=== PATIENT | female | born 1960 | race Caucasian/White ===

== ENCOUNTER 2019-11-10 08:02 | Outpatient (CLI) | payer OTHER, SELFPAY ==
--- NOTE | ~2019-11-10 | MM_ITS ---
EXAMINATION: MM screening anupama BI w alysha HISTORY: Screening mammogram TECHNIQUE: Craniocaudal and mediolateral oblique 3-D tomosynthesis images were obtained and synthetic 2-D images were generated. CAD analysis was submitted and interpreted. COMPARISON: Comparison to multiple prior studies sequentially, with oldest reviewed study dated 12/2015. BREAST PARENCHYMAL COMPOSITION: There are scattered areas of fibroglandular density. FINDINGS: There is no evidence of suspicious mass, calcification, or architectural distortion to sugg est malignancy in either breast. There has been no suspicious interval change. IMPRESSION: 1. No mammographic evidence of malignancy. 2. Recommend routine screening mammography in one year. BI-RADS Category 1: Negative Reviewed, dictated and finalized at location A.
== END 2019-11-10 08:03 | disposition home or self-care (01) ==
LOC: ANHIMG 08:03
PROVIDERS: PCP Internal Medicine; Visit Provider Obstetrics & Gynecology
DX: Z12.31 Encounter for screening mammogram for malignant neoplasm of breast (principal)
CPT/HCPCS: 77063; 77067

== ENCOUNTER 2020-01-14 15:18 | Outpatient (CLI) | payer OTHER, SELFPAY ==
[2020-01-14 15:34] LABS: Basophils Absolute Auto 0.1 K/mm3 (0.0-0.1); Basophils Percent Auto 0.5 % (0.2-1.2); Eosinophils Absolute Auto 0.2 K/mm3 (0-0.3); Hematocrit 39.5 % (37.0-47.0); Hemoglobin 13.3 g/dL (12.0-15.0); Immature Granulocyte Absolute 0.04 K/mm3 (0.00-0.031); Immature Granulocyte Percent A 0.4 % (0-0.5); Lymphocytes Percent Auto 31.9 % (18.3-44.2); Mean Corpuscular HGB Conc 33.7 g/dl (32-36); Mean Corpuscular Hemoglobin 32.4 pg (26-34); Mean Corpuscular Volume 96.1 fl (80-100); Mean Platelet Volume 8.7 fl (7.4-10.4); Monocytes Absolute Auto 0.9 K/mm3 (0.1-0.6); Monocytes Percent Auto 9.1 % (2.6-8.5); Neutrophils Absolute Auto 5.3 K/mm3 (1.3-6.7); Neutrophils Percent Auto 56.1 % (45.5-73.1); Platelet Count Result 377 k/mm3 (150-375); Red Blood Count 4.11 M/mm3 (4.2-5.4); Red Cell Distribution Width 12.2 % (11.5-14.5); White Blood Count 9.4 K/mm3 (4.5-10.0)
== END 2020-01-14 15:19 | disposition home or self-care (01) ==
LOC: ANHLAB 15:20
PROVIDERS: PCP Internal Medicine; Visit Provider Internal Medicine Hematology & Oncology
DX: D47.3 Essential (hemorrhagic) thrombocythemia (principal)
CPT/HCPCS: 36415; 85025

== ENCOUNTER 2020-07-14 15:04 | Outpatient (CLI) | payer OTHER, SELFPAY ==
[2020-07-14 15:26] LABS: Basophils Absolute Auto 0.1 K/mm3 (0.0-0.1); Basophils Percent Auto 0.8 % (0.2-1.2); Eosinophils Absolute Auto 0.2 K/mm3 (0-0.3); Eosinophils Percent Auto 2.4 % (0-4.4); Hematocrit 37.5 % (37.0-47.0); Hemoglobin 12.7 g/dL (12.0-15.0); Immature Granulocyte Absolute 0.04 K/mm3 (0.00-0.031); Immature Granulocyte Percent A 0.5 % (0-0.5); Lymphocytes Absolute Auto 3.42 K/mm3 (0.9-3.2); Lymphocytes Percent Auto 38.6 % (18.3-44.2); Mean Corpuscular HGB Conc 33.9 g/dl (32-36); Mean Corpuscular Hemoglobin 32.1 pg (26-34); Mean Corpuscular Volume 94.7 fl (80-100); Mean Platelet Volume 8.7 fl (7.4-10.4); Monocytes Absolute Auto 0.6 K/mm3 (0.1-0.6); Monocytes Percent Auto 7.2 % (2.6-8.5); Neutrophils Absolute Auto 4.5 K/mm3 (1.3-6.7); Neutrophils Percent Auto 50.5 % (45.5-73.1); Platelet Count Result 367 k/mm3 (150-375); Red Blood Count 3.96 M/mm3 (4.2-5.4); Red Cell Distribution Width 12.1 % (11.5-14.5); White Blood Count 8.9 K/mm3 (4.5-10.0)
== END 2020-07-14 15:05 | disposition home or self-care (01) ==
LOC: ANHLAB 15:05
PROVIDERS: PCP Internal Medicine; Visit Provider Internal Medicine Hematology & Oncology
DX: D47.3 Essential (hemorrhagic) thrombocythemia (principal)
CPT/HCPCS: 36415; 85025

== ENCOUNTER 2020-11-22 08:17 | Outpatient (CLI) | payer OTHER, SELFPAY ==
--- NOTE | ~2020-11-22 | MM_ITS ---
EXAMINATION: MM screening anupama BI w alysha HISTORY: Screening mammogram TECHNIQUE: Craniocaudal and mediolateral oblique 3-D tomosynthesis images were obtained and synthetic 2-D images were generated. CAD analysis was submitted and interpreted. COMPARISON: 11/10/2019, 09/12/2018, 09/27/2017 bilateral digital screening mammogram examinations BREAST PARENCHYMAL COMPOSITION: There are scattered areas of fibroglandular density. FINDINGS: There is no evidence of suspicious mass, calcification, or architectural distortion to sugg est malignancy in either breast. There has been no suspicious interval change. IMPRESSION: 1. No mammographic evidence of malignancy. 2. Recommend routine screening mammography in one year. BI-RADS Category 1: Negative Reviewed, dictated and finalized at location A.
== END 2020-11-22 08:18 | disposition home or self-care (01) ==
PROVIDERS: PCP Internal Medicine; Visit Provider Obstetrics & Gynecology
DX: Z12.31 Encounter for screening mammogram for malignant neoplasm of breast (principal)
CPT/HCPCS: 77063; 77067

== ENCOUNTER 2021-03-05 15:07 | Outpatient (RCR) | payer OTHER, SELFPAY ==
[2021-03-05 15:19] VITALS: BMI 29.7
== END 2021-06-01 14:48 | disposition home or self-care (01) ==
LOC: ANHDMC 15:07
PROVIDERS: PCP Internal Medicine; Visit Provider Internal Medicine
DX: E66.9 Obesity, unspecified (principal); Z68.32 Body mass index [BMI] 32.0-32.9, adult; Z71.3 Dietary counseling and surveillance
CPT/HCPCS: 97802

== ENCOUNTER 2021-12-05 07:22 | Outpatient (CLI) | payer OTHER, SELFPAY ==
--- NOTE | ~2021-12-05 | MM_ITS ---
EXAMINATION: MM screening anupama BI w alysha HISTORY: Screening mammogram TECHNIQUE: Craniocaudal and mediolateral oblique 3-D tomosynthesis images were obtained and synthetic 2-D images were generated. CAD analysis was submitted and interpreted. COMPARISON: 11/22/2020, 11/10/2019, 09/16/2018 bilateral screening mammogram examinations BREAST PARENCHYMAL COMPOSITION: There are scattered areas of fibroglandular density. FINDINGS: There is no evidence of suspicious mass, calcification, or architectural distortion to sugg est malignancy in either breast. There has been no suspicious interval change. IMPRESSION: 1. No mammographic evidence of malignancy. 2. Recommend routine screening mammography in one year. BI-RADS Category 1: Negative Reviewed, dictated and finalized at location A.
== END 2021-12-05 07:23 | disposition home or self-care (01) ==
LOC: ANHIMG 07:24
PROVIDERS: PCP Internal Medicine; Visit Provider Obstetrics & Gynecology
DX: Z12.31 Encounter for screening mammogram for malignant neoplasm of breast (principal)
CPT/HCPCS: 77063; 77067

== ENCOUNTER 2023-01-29 08:00 | Outpatient (CLI) | payer OTHER, SELFPAY ==
--- NOTE | ~2023-01-29 | MM_ITS ---
EXAMINATION: MM screening anupama BI w alysha HISTORY: Screening mammogram TECHNIQUE: Craniocaudal and mediolateral oblique 3-D tomosynthesis images were obtained and synthetic 2-D images were generated. CAD analysis was submitted and interpreted. COMPARISON: 12/05/2021, 11/22/2020, 11/10/2019 bilateral screening mammogram examinations BREAST PARENCHYMAL COMPOSITION: There are scattered areas of fibroglandular density. FINDINGS: There is no evidence of suspicious mass, calcification, or architectural distortion to sugg est malignancy in either breast. There has been no suspicious interval change. IMPRESSION: 1. No mammographic evidence of malignancy. 2. Recommend routine screening mammography in one year. BI-RADS Category 1: Negative Reviewed, dictated and finalized at location A.
== END 2023-01-29 08:01 | disposition home or self-care (01) ==
PROVIDERS: PCP Internal Medicine; Visit Provider Obstetrics & Gynecology
DX: Z12.31 Encounter for screening mammogram for malignant neoplasm of breast (principal)
CPT/HCPCS: 77063; 77067

== ENCOUNTER 2024-03-16 07:21 | Outpatient (CLI) | payer OTHER, SELFPAY ==
--- NOTE | ~2024-03-16 | MM_ITS ---
EXAMINATION: MM screening anupama BI w alysha HISTORY: Screening TECHNIQUE: Craniocaudal and mediolateral oblique 3-D tomosynthesis images were obtained and synthetic 2-D images were generated. CAD analysis was submitted and interpreted. COMPARISON: Comparison to multiple prior studies sequentially, with oldest reviewed study dated 09/2017. BREAST PARENCHYMAL COMPOSITION: Dense: The breasts are heterogeneously dense, which may obscure small masses FINDINGS: There is no evidence of suspicious mass, calcification, or architectural distortion to sugg est malignancy in either breast. There has been no suspicious interval change. IMPRESSION: 1. No mammographic evidence of malignancy. 2. Recommend routine screening mammography in one year. BI-RADS Category 1: Negative Reviewed, dictated and finalized at location B.
== END 2024-03-16 07:22 | disposition home or self-care (01) ==
LOC: ANHIMG 07:24
PROVIDERS: PCP Internal Medicine; Visit Provider Obstetrics & Gynecology
DX: Z12.31 Encounter for screening mammogram for malignant neoplasm of breast (principal)
CPT/HCPCS: 77063; 77067

== ENCOUNTER 2025-05-13 08:43 | Outpatient (CLI) | payer OTHER, SELFPAY ==
--- NOTE | ~2025-05-13 | DEXA_ITS ---
Bone Density Report Name: YAMILETH LENNON Age: 64 Sex: Female Ethnicity: White Date of : 1960 Indication: postmenopausal; screening for osteoporosis; height loss; Referring Provider: MARTINFADUMO Study: Bone densitometry was performed. Exam Date: May 13, 2025 Accession number: [id number] Bone Density: Region BMD T-score Z-score Classification AP Spine(L1-L4) 0.905 -1.3 0.6 Osteopenia Femoral Neck (Left) 0.610 -2.2 -0.6 Osteopenia Total Hip (Left) 0.825 -1.0 0.3 Normal Femoral Neck (Right) 0.669 -1.6 0.0 Osteopenia Total Hip (Right) 0.797 -1.2 0.1 Osteopenia Total Hip Mean 0.811 -1.1 0.2 Osteopenia World Health Organization criteria for BMD impression classify patients as: Normal (T-score at or above -1.0), Osteopenia (T-score between -1.0 and -2.5), or Osteoporosis (T-score at or below -2.5). 10-year Fracture Risk(1): Major Osteoporotic Fracture 12% Hip Fracture 2.0% Reported Risk Factors: [place] (), Neck BMD=0.610, BMI=28.0 (1) FRAX(R) Version 3.08. Fracture probability calculated for an untreated patient. Fracture probability may be lower if the patient has received treatment. Clinical Information Provided by Patient: Patient maximum height was 67.0 Menopause Age: 40 No regular weight bearing exercise Drinks caffeinated beverages Onset of menses at age 8 Number of children 1 Impression: The patient has low bone mass, based on the Left Femoral Neck T-score. The patient has an estimated ten-year risk of hip fracture of 2% and an estimated ten-year risk of major fracture of 12%, based on the WHO FRAX algorithm. Discussion: BONE DENSITY IS LOW AT ONE OR MORE SKELETAL SITES. This patient's lowest T-score is low at one or more skeletal sites. It meets the World Health Organization's (WHO) criteria for ?low bone mass? (T-score between -1.0 and -2.5). The patient's 10-year risk of fracture as calculated by FRAX is less than the threshold where pharmacological therapy is recommended by the National Osteoporosis Foundation (NOF). However, all treatment decisions require clinical judgment and consideration of individual patient factors, including patient preferences, comorbidities, previous drug use, risk factors not captured in the FRAX model (e.g., frailty, falls, vitamin D deficiency, increased bone turnover, interval significant decline in bone density) and possible under or overestimation of fracture risk by FRAX. The patient should follow a healthful lifestyle (good nutrition with adequate calcium and vitamin D, and appropriate weight-bearing exercise). Follow-Up: Consider repeating this study in 2 to 3 years to reassess this patient's status, or sooner if there is some new clinical indication. Reported by: DANA on 05/13/2025 9:31:00 AM. Reviewed, dictated and finalized at location A.
--- NOTE | ~2025-05-13 | MM_ITS ---
EXAMINATION: MM screening anupama BI w alysha HISTORY: Screening TECHNIQUE: Craniocaudal and mediolateral oblique 3-D tomosynthesis images were obtained and synthetic 2-D images were generated. CAD analysis was submitted and interpreted. COMPARISON: Comparison to multiple prior studies sequentially, with oldest reviewed study dated , 11/10/2019 BREAST PARENCHYMAL COMPOSITION: The breasts are heterogeneously dense, which may obscure small masses. FINDINGS: There is no evidence of suspicious mass, calcification, or architectural distortion to suggest malignancy in either breast. IMPRESSION: 1. No mammographic evidence of malignancy. 2. Recommend routine screening mammography in one year. BI-RADS Category 1: Negative Reviewed, dictated and finalized at location B. ING MACHINE OPERATOR
--- OUTSIDE RECORDS SUMMARY | 2025-05-13 08:59 | XMS_ITS | Encounter Summary ---
Author Organization [facility] Address 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
--- OUTSIDE RECORDS SUMMARY | 2025-05-13 08:59 | XMS_ITS | Clinical Summary ---
Author Organization [facility] Address [address] [place] [address] [place] [address] Care Team Providers Care Umbrella Tipper Machine Name Role Phone Wes Landeros MD Primary Care Provider Allergies No known active allergies Medications lisinopril-hydr oCHLOROthiazide (ZESTORETIC) 10-12.5 mg tablet lisinopril 10 mg-hydrochloroth iazide 12.5 mg tablet once daily Active rosuvastatin (CRESTOR) 20 mg tablet rosuvastatin 20 mg tablet Active sertraline (ZOLOFT) 50 mg tablet sertraline 50 mg tablet once daily Active ALPRAZolam (XANAX) 0.5 mg tablet alprazolam 0.5 mg tablet Active Active Problems Problem Noted Date Diagnosed Date Reactive thrombocytosis 10/02/2019 Family History Medical History Relation Name Comments Diabetes Father Relation Name Status Comments Brother Alive Father Mother Sister 1 Alive Sister 2 Alive Sister 3 SISTER 44 YEARS AGO FROM [place] Son SON 25 YEA RS AGO Social History Tobacco Use Types Packs/Day Years Used Date Smoking Tobacco: Former Cigarettes 0.3 20 0 10/01/1994 - 10/01/2014 Smokeless Tobacco: Never Tobacco Cessation:Counseling Given: No Alcohol Use Standard Drinks/Week Comments Yes 2 (1 standard drink = 0.6 oz pur e alcohol) 2 BEERS ON THE WEEKENDS Comments No Sex and Gender Information Value Date Recorded Sex Assigned at Not on file 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 Gender Identity Not on file Sexual Orientation Not on file Last Filed Vital Signs Vital Sign Reading Time Taken Comments Blood Pressure 134/74 07/14/2020 3:51 PM PILOT PLANT TECHNICIAN Pulse 85 07/14/2020 3:51 PM PILOT PLANT TECHNICIAN Temperature 36.4 C (97.5 F) 07/14/2020 3:51 PM PILOT PLANT TECHNICIAN Respiratory Rate - - Oxygen Saturation 96% 07/14/2020 3:51 PM PILOT PLANT TECHNICIAN Inhaled Oxygen Concentration - - Weight 84.6 kg (186 lb 9.6 oz) 07/14/2020 3:51 P M PILOT PLANT TECHNICIAN Height 170.2 cm (5' 7) 07/14/2020 3:51 PM PILOT PLANT TECHNICIAN Body Mass Index 29.23 07/14/2020 3:51 PM PILOT PLANT TECHNICIAN Plan of Treatment Health Maintenance Due Date Last Done Comments DTAP/TDAP/TD VACCINES (1 - Tdap) 1977 BREAST CANCER SCREENING 1998 COLORECTAL SCREENING 11/06/2003 Colorectal Cancer Screening 11/06/2003 FIT-DNA Q 3 years 11/06/2003 FIT/FOBT Q 1 year 11/06/2003 Flex Sig/CT Colonography Q 5 years 11/06/2003 PNEUMOCOCCAL VACCINE 50+ YEARS (1 of 1 - PCV) 11/06/19 09 ZOSTER VACCINE (1 of 2) 2008 OSTEOPOROSIS SCREENING 11/06/2023 INFLUENZA VACCINE (#1) 2025 RSV VACCINE (60+ or ) (1 - 1-dose 75+ series) 2033 Care Teams Umbrella Tipper Machine Relationship Specialty Start Date End Date Wes Landeros MD PCP - General Internal Medicine 08/24/19
--- OUTSIDE RECORDS SUMMARY | 2025-05-13 08:59 | XMS_ITS | Encounter Summary ---
Author Organization [facility] Address 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
--- OUTSIDE RECORDS SUMMARY | 2025-05-13 09:00 | XMS_ITS | Data Portability ---
Author Organization [place] [facility] [employer], Main Office Address [address] [place] [address] Assessment Encounter Date Assessment Date Assessment LastModified by Organization Details LastModified Time 10/02/2024 10/02/2024 07/26/2022: Gluc 109 A1C 5.6 Vit D 24 PLT 410 02/01/2023: TSH/FT4/Lipids : WNL Na 133 A1C 5.4 PLT 442 VIT D 71 08/22/2023: Labs: Stable 03/03/2024: PLT 438 A1C 5.8 09/28/2024: A1C 5.9 PLT 403 45 minutes spent with the patient, labs reviewed, discussed in detail her use of xanax and also to start on phentermine Not available 10/02/2024 16:03:00 11/01/2024 11/01/2024 07/26/2022: Gluc 109 A1C 5.6 Vit D 24 PLT 410 02/01/2023: TSH/FT4/Lipids : WNL Na 133 A1C 5.4 PLT 442 VIT D 71 08/22/2023: Labs: Stable 03/03/2024: PLT 438 A1C 5.8 09/28/2024: A1C 5.9 PLT 403 Not available 11/01/2024 15:45:28 12/06/2024 12/06/2024 07/26/2022: Gluc 109 A1C 5.6 Vit D 24 PLT 410 02/01/2023: TSH/FT4/Lipids : WNL Na 133 A1C 5.4 PLT 442 VIT D 71 08/22/2023: Labs: Stable 03/03/2024: PLT 438 A1C 5.8 09/28/2024: A1C 5.9 PLT 403 Not available 12/06/2024 13:36:12 04/04/2025 04/04/2025 07/26/2022: Gluc 109 A1C 5.6 Vit D 24 PLT 410 02/01/2023: TSH/FT4/Lipids : WNL Na 133 A1C 5.4 PLT 442 VIT D 71 08/22/2023: Labs: Stable 03/03/2024: PLT 438 A1C 5.8 09/28/2024: A1C 5.9 PLT 403 03/01/2025: A1C 5.8 07/26/2022: Gluc 109 A1C 5.6 Vit D 24 PLT 410 02/01/2023: TSH/FT4/Lipids : WNL Na 133 A1C 5.4 PLT 442 VIT D 71 08/22/2023: Labs: Stable 03/03/2024: PLT 438 A1C 5.8 09/28/2024: A1C 5.9 PLT 403 45 minutes spent with the patient, labs reviewed, discussed in detail her use of xanax and also to start on phentermine [email or web address] Not available 04/04/2025 15:52:10 Plan of Treatment Reminders Order Date Submit Date Provider Last Modified By Organization Details Last Modified Time Details Appointments Any 15 2025 03:00P M Wes covarrubias MD Not available Not available Not available Lab HbA1c (hemoglob in A1c), blood 2024 025 [facility], [address], [place], [address], 04/04/2025 16:03:14 microalbu min/creat inine, mass ratio, urine 2024 025 [facility], [address], [place], [address], 04/04/2025 16:03:13 vitamin D, 25-hydrox y, total, serum 2024 025 [facility], [address], [place], [address], 04/04/2025 16:03:15 CMP, serum or plasma 2024 025 EMILY [facility], [address], [place], [address], 04/04/2025 16:03:12 CBC w/ auto diff 2024 025 EMILY [facility], [address], [place], [address], 04/04/2025 16:03:14 TSH + free T4, serum 2024 025 EMILY [facility], [address], [place], [address], 04/04/2025 16:03:12 lipid panel, serum 2024 025 EMILY [facility], [address], [place], [address], 04/04/2025 16:03:11 CMP, serum or plasma 2024 025 [facility], [address], [place], [address], 04/02/2025 09:24:58 CBC w/ auto diff 2024 025 [facility], [address], [place], [address], 04/02/2025 09:24:58 TSH + free T4, serum 2024 025 [facility], [address], [place], [address], 04/02/2025 09:24:58 lipid panel, serum 2024 025 [email or web address] [facility], [address], [place], [address], 04/02/2025 09:24:58 HbA1c (hemoglob in A1c), blood 2024 025 [facility], [address] , [place], [address], 04/02/2025 09:24:57 microalbu min/creat inine, mass ratio, urine 2024 025 [email or web address] [employer] [facility], [address] , [place], [address], 04/02/2025 09:24:58 vitamin D, 25-hydrox y, total, serum 2024 025 [employer], [address], [place], [address], 04/02/2025 09:24:58 Referral podiatris t referral - Please call patient to schedule an appointme nt. Thank you. 2024 025 EMILY Lindquist DPM, [address], [facility] [address], [place], [address], 04/08/2025 08:52:25 podiatris t referral - Please call patient to schedule an appointme nt. Thank you. 2024 025 Juni Lindquist DPM, [address], [facility] [address], [place], [address], 01/01/2025 11:32:11 Procedures None recorded. Surgeries None recorded. Imaging MAMMO, screening , digital, bilateral - Please call patient to schedule. 2024 025 [email or web address] [facility], [address], [place], [address], 04/04/2025 15:39:13 bone density - Please call patient to schedule. 2024 025 [email or web address] [facility], [address], [place], [address], 11/08/2024 16:10:16 Medication Orders alprazola m 1 mg tablet 2024 025 [id number], [address], [place], [place], [id number], 04/04/2025 16:02:12 phentermi ne 37.5 mg tablet 2024 025 [facility], [address], [place], [place], [id number], 04/04/2025 15:21:43 phentermi ne 37.5 mg tablet 2024 025 [facility], [address], [place], [place], [id number], 04/04/2025 15:21:43 phentermi ne 37.5 mg tablet 2024 025 [facility] #80[facility], [address], [place], [place], [id number], 04/04/2025 15:21:43 phentermi ne 37.5 mg tablet 2024 025 [facility] #32147, [address], [place], [place], [id number], 04/04/2025 15:21:43 alprazola m 1 mg tablet 2024 025 [facility], [address], [place], [place], [id number], 10/02/2024 16:00:52 Patient TargetsNo targets recorded. Patient InstructionsNo instructions recorded. Reason for Referral Associate Store Director Referral for Hype rglycemia Please call patient to schedule an appointment. Thank you. Referring Physician: Wes Landeros, Internal Medicine, Encounter Date: 10/02/2024 Associate Store Director Referral for Hype rglycemia Please call patient to schedule an appointment. Thank you. Referring Physician: Murtuza Bahrainwala, Internal Medicine, Encounter Date: 04/04/2025 Problems Name Problem SNOMED Code Status Onset Date Resolution Date Notes Provider Name and Address Organization Details Recorded Time Depressive disorder 79622549 Active Not Available [facility] 3 05:20:11 Essential hypertension 26034598 Active Wes danielle MD [address], [address], [place], [address] , [facility] [employer] [facility] [employer] 5 15:52:18 Acute sinusitis 93537546 Active 2021 Not Available [facility] 3 05:20:11 Cough 08049251 Active 2021 Not Available [facility] 3 05:20:11 Upper respiratory infection 96060646 Active 2022 Elizabeth conteh, [place] [employer] [facility] [employer] [facility] 3 13:00:04 Eruption 631656623 Active 2022 Elizabeth conteh, [employer] [facility] [employer] 3 11:32:25 Moderate recurrent major depression 94177649 Active 2022 Wes danielle MD [address], [address], [place], [address] , [employer] [facility] [employer] [facility] 5 15:52:18 Thrombocytosi s 9582197 Active 2022 Wes danielle MD [address], [address], [place], [address] , [employer] [facility] [employer] [facility] 5 15:52:18 Hyperlipidemi a 84983490 Active 2022 Wes danielle MD [address], [place], [address] , [employer] [facility] [employer] [facility] 5 15:52:18 Hyperglycemia 99736392 Active 2022 Wes danielle MD [address], [place], [address] , [place] [facility] [employer] [facility] 5 15:52:18 Vitamin D deficiency 22558622 Active 2022 Wes danielle MD [address] [facility], [address], [address] [place] [address] , [facility] [email or web address] [facility] 5 15:52:18 Environmental allergy 125033083 Active 2022 Wes danielle MD [address] [facility], [address], [address] [place] [address] , [facility] [email or web address] [facility] 5 15:52:18 COVID-19 311216612 Active 2023 Wes danielle MD [address] [facility], [address], [address] [place] [address] , [facility] [email or web address] [facility] 5 15:52:18 Contact dermatitis caused by urushiol from [facility] radha 835146437 Active 2023 JODY Peoples, [facility] [email or web address] [facility] 5 14:09:56 Acute urticaria 763901302 Active 2023 Judith Cano MA null, [facility] [email or web address] [facility] 4 11:55:38 Obesity 387614402 Active 2024 Wes danielle MD [address] [facility], [address], [address] [place] [address] , [facility] [email or web address] [facility] 5 14:18:26 Infection of ear 778318472 Active 2024 JODY Peoples, [facility] [email or web address] [facility] 5 12:18:55 Problem Notes None recorded. Procedures Surgical History Date Name Laterality Status Provider Name and Address Organization Details Recorded Time Appendectomy completed Not Available [employer] 09/08/2022 05:14:12 Imaging Results None recorded. Procedure Notes None recorded. Medical Equipment None Reported. Allergies No known drug allergies Medications Name Sig Start Date Stop Date Status Note LastModified by Organization Details LastModified Time Prescript ion - Renewal active Not Available Not Available Not Available azithromy latrice 250 mg tablet TAKE 2 TABLETS (500 MG) BY ORAL ROUTE ONCE DAILY FOR 1 DAY THEN 1 TABLET (250 MG) BY ORAL ROUTE ONCE DAILY FOR 4 DAYS 02/22 completed Not Available Not Available Not Available alprazola m 1 mg tablet TAKE 1 TABLET BY MOUTH TWICE DAILY NEEDED active Not Available Not Available No t Available fluconazo le 150 mg tablet TK 1 T PO PRF ITCH UTD 04/30 completed Not Available Not Available Not Available phentermi ne 15 mg capsule TK 1 C PO QD 04/30 completed Not Available Not Available Not Available Zyrtec 10 mg tablet Take 1 tablet every day by oral route PRN 2018 active Not Available Not Available Not Avai lable phentermi ne 37.5 mg tablet TAKE 1 TABLET BY MOUTH DAILY 04/04 completed Not Available Not Available Not Available amlodipin e 5 mg tablet TAKE 1 TABLET DAILY 2023 active Not Available Not Available Not Avai lable acyclovir 400 mg tablet TAKE 1 TABLET BY MOUTH TWICE DAILY active Not Available Not Available No t Available triamcino lone acetonide 0.1 % topical cream APPLY A THIN LAYER TO THE AFFECTED AREA(S) BY TOPICAL ROUTE 2 TIMES PER DAY active Not Available Not Available No t Available phentermi ne 30 mg capsule TK 1 C PO QD 04/30 completed Not Available Not Available Not Available alprazola m 0.5 mg tablet TAKE 1 TABLET BY MOUTH TWICE DAILY NEEDED 04/03 completed Not Available Not Available Not Available benzonata te 100 mg capsule TK ONE C PO BID PRF COUGH 06/16 completed Not Available Not Available Not Available monteluka st 10 mg tablet Take 1 tablet every day by oral route. active Not Available Not Available No t Available lisinopri l 10 mg-hydroc hlorothia zide 12.5 mg tablet TAKE 1 TABLET DAILY 2024 active Not Available Not Available Not Avai lable prednison e 5 mg tablets in a dose pack FOLLOW PACKAGE DIRECTIO NS 04/03 completed Not Available Not Available Not Available methylpre dnisolone 4 mg tablets in a dose pack FOLLOW PACKAGE DIRECTIO NS 04/04 completed Not Available Not Available Not Available sertralin e 50 mg tablet TAKE 1 TABLET DAILY (NO ALCOHOL, DRIVING, OR WITH SEDATING MEDICATI ONS, NOTIFY IF ANY CHANGE IN MOOD OR BEHAVIOR ) active Not Available Not Available No t Available amoxicill in 875 mg-potass ium clavulana te 125 mg tablet Take 1 tablet twice a day by oral route for 7 days. 04/16 completed Not Available Not Available Not Available Premarin 0.625 mg/gram vaginal cream APPLY 0.5 GRAM VAGINALL Y TO THE AFFECTED AREA 2 TIMES A WEEK active Not Available Not Available No t Available rosuvasta tin 20 mg tablet TAKE 1 TABLET BY MOUTH ONCE DAILY 2024 active Not Available Not Available Not Avai lable aspirin [address] Trimble 07/14/19 21 Not Available Not Available Not Available Robitussi n Cough and Cold CF as needed 12/16 completed Not Available Not Available Not Available cholecalc iferol (vitamin D3) 1,250 mcg (50,000 unit) capsule Take 1 capsule every week by oral route for 60 days. 03/01 completed Not Available Not Available Not Available Suprep Bowel Prep Kit 17.5 gram-3.13 gram-1.6 gram oral solution 12/16 completed Not Available Not Available Not Available Flonase Allergy Relief 50 mcg/actua tion nasal spray,fatemeh pension [facility] 1 spray every day by intranas al route. active Not Available Not Available No t Available Flublok Quad (PF) 180 mcg (45 mcg x 4)/0.5 mL IM syringe PHARMACI ST ADMINIST ERED IMMUNIZA TION ADMINIST ERED AT TIME OF DISPENSI NG active Not Available Not Available No t Available Lagevrio 200 mg capsule (EUA) Take 4 capsules every 12 hours by oral route for 5 days. 04/03 completed never received from rojelio chandler Not Available Not Available Not Available Vitals Date Recorded Body height Body mass index (BMI) Body weight Heart rate Oxygen saturation Oxygen saturation in Arterial blood by Pulse oximetry Body temperature Systolic And Diastolic Provider Name and Address Organization Details Last Updated DateTime 5 167.64 cm 28.7 kg/m2 55884.4 4 g 83 /min 97 % 97 % 97.3 [degF] 120/68 mm[Hg] Carmen Marsh MA [facility] [employer] [facility] 5 15:27:54 Date Recorded Body height Body mass index (BMI) Body weight Heart rate Oxygen saturation Oxygen saturation in Arterial blood by Pulse oximetry Body temperature Systolic And Diastolic Provider Name and Address Organization Details Last Updated DateTime 5 167.64 cm 28.1 kg/m2 81274.0 7 g 105 /min 98 % 98 % 98.4 [degF] 137/86 mm[Hg] Joseph JODY Levi [facility] [employer] [facility] 5 15:13:09 Date Recorded Body height Body mass index (BMI) Body weight Body temperature Heart rate Oxygen saturation Oxygen saturation in Arterial blood by Pulse oximetry Pain severity - 0-10 verbal numeric rating [Score] - Reported Systolic And Diastolic Provider Name and Address Organization Details Last Updated DateTime 5 167.64 cm 27.9 kg/m2 50443.4 8 g 97.3 [degF] 80 /min 97 % 97 % 0 136/72 mm[Hg] Marla Finney MA [facility] [employer] [facility] 5 15:09:50 Date Recorded Body height Body mass index (BMI) Body weight Body temperature Heart rate Oxygen saturation Oxygen saturation in Arterial blood by Pulse oximetry Pain severity - 0-10 verbal numeric rating [Score] - Reported Systolic And Diastolic Provider Name and Address Organization Details Last Updated DateTime 5 167.64 cm 27.3 kg/m2 55324.1 1 g 97.3 [degF] 94 /min 95 % 95 % 0 130/68 mm[Hg] Marla Finney MA [facility] [employer] [facility] 5 15:11:34 Date Recorded Body height Body mass index (BMI) Body weight Body temperature Pain severity - 0-10 verbal numeric rating [Score] - Reported Heart rate Oxygen saturation Oxygen saturation in Arterial blood by Pulse oximetry Systolic And Diastolic Provider Name and Address Organization Details Last Updated DateTime 5 167.64 cm 27.8 kg/m2 35124.8 9 g 97 [degF] 0 92 /min 96 % 96 % 124/66 mm[Hg] SALEEM Garcia - [facility] 5 15:20:59 Social History Question Answer Notes LastModified by Organizat ion Details LastModified Time Tobacco Smoking Status Former Smoker quit 2007 Not Available [employer] 09/08/2022 05:11:44 Do You Have An Advance Directive? No [id number] Information not available 09/08/2022 What Is Your Level Of Caffeine Consumption? Occasional [id number] Information not available 09/08/2022 How Much Tobacco Do You Chew? None [id number] Information not available 09/08/2022 In The 14 Days Before Symptom Onset, Have You Had Close Contact With A Laboratory-confi rmed COVID-19 While That Case Was Ill? No [id number] Information not available 09/08/2022 In The 14 Days Before Symptom Onset, Have You Had Close Contact With A Person Who Is Under Investigation For COVID-19 While That Person Was Ill? No [id number] Information not available 09/08/2022 What Type Of Diet Are You Following? REGULAR [id number] Information not available 09/08/2022 Which Illicit Or Recreational Drugs Have You Used? None [id number] Information not available 09/08/2022 What Is The Highest Grade Or Level Of School You Have Completed Or The Highest Degree You Have Received? [id number] Information not available 03/01/2023 Have There Been Any Changes To Your Family Or Social Situation? No Information not available 12/06/2024 What Is The Fluoride Status Of Your Home? Unknown Information not available 03/01/2023 Are There Any Guns Present In Your Home? No Information not available 03/01/2023 Do You Use Insect Repellent Routinely? No Information not available 12/06/2024 Where Do You Live? SingleLevelHouse Information not available 03/01/2023 Do You Have A Medical Power Of Retrimmer? No Information not available 03/01/2023 What Was The Date Of Your Most Recent Tobacco Screening? 04/04/2025 Information not available 04/04/2025 Do You Have Any Pets? Yes Information not available 03/01/2023 What Is Your Relationship Status? Information not available 03/01/2023 Do You Use Your Seat Belt Or Car Seat Routinely? Yes Information not available 03/01/2023 Do You Have Smoke And Carbon Monoxide Detectors In Your Home? Yes Information not available 03/01/2023 At What Age Did You Start Smoking Tobacco? 8 [id number] Information not available 09/08/2022 Are You Passively Exposed To Smoke? No Information not available 03/01/2023 Are There Any Smokers In Your House? No Information not available 03/01/2023 How Much Tobacco Do You Smoke? No Was 1 Ppw Information not available 03/01/2023 Do You Use Sunscreen Routinely? Yes [id number] Information not available 09/08/2022 Have You Recently Traveled Abroad? No [id number] Information not available 09/08/2022 Sex: Female Functional Status Question Answer Note LastModified by Organizat ion Details LastModified Time Do you use any illicit or recreational drugs? No Information not available 03/01/2023 Do you or have you ever used any other forms of tobacco or nicotine? No Information not available 03/01/2023 What is your level of alcohol consumption? Occasional [id number] Information not available 09/08/2022 Are you currently employed? Yes Information not available 03/01/2023 What is your occupation? [employer] [id number] Information not available 09/08/2022 What is your exercise level? None [id number] Information not available 09/08/2022 Mental Status Question Answer Note LastModified by Organization D etails LastModified Time Do you feel stressed (tense, restless, nervous, or anxious, or unable to sleep at night)? [id number] Information not available 03/01/2023 Family History Relationship Description Onset Age of this Age Resolved Age Notes LastModified by Organization Details LastModified Time Sister Hypertensive disorder Not available 2022 16:14:18 Sister Leukemia Not availabl e 03/01/2023 16:15:20 Father Diabetes mellitus Not available 2022 16:14:36 Father Abdominal aortic aneurysm Not available 2022 16:14:46 Mother Myocardial infarction Not available 03/01 16:15:01 Medical History Condition Response BLINDNESS N NERVE DISEASE N RHEUMATIC FEVER N BLADDER PROBLEMS N KIDNEY STONES N MRSA N OTHER # 1 N POLIO N LUNG DISEASE/DISORDER N RADIATION / CHEMOTHERAPY N COPD N Other # 2 N BLOOD DISEASES N EAR OR HEARING PROBLEMS N MUMPS N BOWEL PROBLEMS N DEPRESSION (INCLUDING POST ) Y STROKE/TIA N ULCERS N BENIGN PROSTATIC HYPERPLASIA N MEASLES N MYOCARDIAL INFARCTION N OBESITY N GERD/NAUSEA N ANEURYSM N URINARY/BLADDER/KIDNEY PROBLEMS N CORONARY ARTERY DISEASE (CAD) N ADDICTION CONCERNS N Impotence N ENDOMETRIOSIS N USE OF BLOOD THINNERS N SKIN PROBLEMS N GASTROINTESTINAL DISORDER N PERIPHERAL VASCULAR DISEASE N MUSCLE,JOINT OR BONE PROBLEMS N GASTROINTESTINAL BLEEDING N BLOOD CLOTS N ASTHMA N CATARACTS N ERECTILE DYSFUNCTION N VARICOSITIES N GI PROBLEMS N Low Testosterone N INFERTILITY N AIDS/HIV N CHEMOTHERAPY / RADIATION N LIVER DISEASE N MALE HYPOGONADISM N HYPERTENSION Y Deficiency N TOURETTE'S N ANXIETY DISORDER N BLOOD TRANSFUSION N ANEMIA/BLOOD DISORDER N CHRONIC EAR INFECTIONS N BRONCHITIS N TUBERCULOSIS N GLAUCOMA N FOOT PROBLEM N DIVERTICULITIS N SLEEP APNEA N CHICKENPOX N INFECTIOUS DISEASE N PROSTATE N HEART ARRHYTHMIA N INSOMNIA N HIGH CHOLESTEROL / HYPERLIPIDEMIA Y EYE PROBLEMS N HYPERTHYROIDISM N EDEMA N CHRONIC PAIN SYNDROME N HYPOTHYROIDISM N CAROTID BLOCKAGE N CONSTIPATION N BACK / NECK PROBLEMS N ATHEROSCLEROSIS N BREAST PROBLEMS N DIALYSIS N ECZEMA N OSTEOPOROSIS N ARTHRITIS N APPENDICITIS N DIABETES, TYPE N BAD TEETH N ENT N HEARTBURN / REFLUX N AUTISM SPECTRUM DISORDER (ASD) N HEPATITIS / LIVER DISEASE N GOUT N SLEEP DISORDER N ALZHEIMER'S DISEASE N Brain Problems N DEMENTIA N HERPES N SEIZURES/EPILEPSY N HEADACHES/MIGRAINES N VASCULAR DISEASE N PACEMAKER N Blood Disorder N DIZZINESS N HEART DISEASE/HEART PROBLEMS N KIDNEY DISEASE N MULTIPLE SCLEROSIS N CANCER: SPECIFY N CARDIAC ARRHYTHMIA N ATRIAL FIBRILLATION N Gall Stones N PULMONARY EMBOLISM N AUTOIMMUNE DISEASE N Gynecological History Statement/Question Response How many live births 1 Abnormal Pap Date of Last Pap Current Control Method Menopause Date of Last Colonoscopy Date of LMP Obstetrics History GPAL:G 1 P 1 0 0 1 Type Value Multiple Births 0 Full Term 1 Induced 0 Spontaneous 0 Premature 0 Living 1 Ectopics 0 Total 1 Immunizations Vaccine Type Date Status Note Provider Nam e and Address Organization Details Recorded Time Influenza, recombinant, quadrivalent, PF 1 completed Eliza Terrell RMA null, [facility] 04/03/2024 17:06:44 Influenza, recombinant, quadrivalent, PF 0 completed Eliza Terrell RMA null, [facility] 04/03/2024 17:06:44 COVID-19 vaccine, vector-nr, [id number], PF, 0.5 mL 1 completed Eliza Terrell RMA null, [facility] 04/03/2024 17:06:44 COVID-19, mRNA, LNP-S, bivalent, PF, 30 mcg/0.3 mL dose 2 completed Eliza Terrell RMA null, [facility] 04/03/2024 17:06:44 Influenza, split virus, quadrivalent, PF 2 completed Eliza Terrell RMA null, [facility] 04/03/2024 17:06:44 Influenza, high-dose, trivalent, PF 4 completed Not Available [facility] 04/04/2025 15:08:17 RSV, bivalent, protein subunit RSVpreF, diluent reconstituted, 0.5 mL, PF 4 completed Not Available [facility] 04/04/2025 15:08:17 COVID-19, mRNA, LNP-S, PF, 100 mcg/0.5mL dose or 50 mcg/0.25mL dose 1 completed Eliza Terrell RMA wero, [facility] 04/03/2024 17:06:44 COVID-19 vaccine, vector-nr, [id number], PF, 0.5 mL 1 completed Eliza Terrell RMA null, [facility] 04/03/2024 17:06:44 Influenza, split virus, quadrivalent, preservative 1 completed Eliza Terrell RMA null, [facility] 04/03/2024 17:06:43 Past Encounters Encounter ID Performer Location Encounter Start Date Encounter Closed Date Diagnosis/Indication Diagnosis SNOMED-CT Code Diagnosis ICD10 Code Diagnosis IMO Codes Diagnosis Note [id number] Wes danielle MD [facility] Internal [place] [address] [place] [address] [place] [address] 12/22/2020 00:00:00 12/22/2020 18:08:38 [id number] Wes danielle MD [facility] Internal [place] [address] [place] [address] [place] [address] 01/19/2021 00:00:00 02/05/2021 09:29:52 [id number] Wes danielle MD [facility] Internal [place] [address] [place] [address] [place] [address] 02/16/2021 00:00:00 02/16/2021 17:14:14 [id number] Wes danielle MD [facility] Internal [place] [address] [place] [address] [place] [address] 03/23/2021 00:00:00 03/23/2021 17:26:14 [id number] Wes danielle MD [facility] Internal [place] [address] [place] [address] [place] [address] 04/20/2021 00:00:00 04/20/2021 16:34:14 [id number] Wes danielle MD [facility] Internal [place] [address] [place] [address] [place] [address] 09/14/2021 00:00:00 09/14/2021 16:21:22 [id number] Wes danielle MD [facility] Internal [place] [address] [place] [address] [place] [address] 02/22/2022 00:00:00 03/01/2022 09:32:55 [id number] Wes danielle MD [facility] Internal Med [place] [address] [facility] [place] [address] 08/23/2022 00:00:00 08/23/2022 16:07:28 [id number] Wes danielle MD [facility] Internal Med [facility] [address], [address] [place] [address] 03/01/2023 15:55:12 03/01/2023 16:56:33 Screening - NAD [id number] Z13.9 07/27/2019 : Dr Aroldo leyva C-scope Mammogram: 09/16/18: Neg,Mammog hilda: 11/10/2019 : NegMammogr am: 11/22/2020 : NegMammogr am: 12/05/2021 : NegMammogr am: 01/29/2023 : Neg PAP: Sees Dr. Barber/Tuan [place]: Did get this at her OB UTD for flu shotUTD Tdap 3 years agoUTD on COVID 19 vaccine RTC in 6 months as per her wisheswith labsER if any symptomssh e did verbalize her understand ing of the above Moderate r ecurrent major depression [id number] F33.1 On alprazolam as needed bid, renewed 03/01/2023 On sertraline 50mg daily Does wellNot suicidal or homicidalD eclines any referral to psychiatry Thrombocytosis 4137300 D [address] Trimble No further apts at this time, get another apt, but she states that she does not see him anymore as Dr Trimble told her that he would see her if the PLT count was 'a million' Essential hypertension 60351361 I10 On amlodipine 5mg dailyOn lisinopril -HCTZ 10-12.5mg daily Does wellGet labsNo CVS or VIDEO MANAGER complaints Hyperlipidemia 83141388 E78.5 On ASAOn rosuvastat in 20mg daily Does wellGet labs Environmental allergy 42 0304994 T78.49XD On zyrtecOn flonase Does well Hyperglycemia 72649334 R 73.9 Get labsStable A1C Vitamin D deficiency 347 24581 E55.9 [id number] Wes danielle MD [facility] Internal Med [facility] [address], [address] [place] [address] 09/01/2023 15:46:21 09/01/2023 16:48:48 Screening - NAD [id number] Z13.9 07/27/2019 : Dr Aroldo leyva C-scope Mammogram: 09/16/18: Neg,Mammog hilda: 11/10/2019 : NegMammogr am: 11/22/2020 : NegMammogr am: 12/05/2021 : NegMammogr am: 01/29/2023 : Neg PAP: Sees Dr. Barber/Tuan [place]: Did get this at her OB UTD for flu shotUTD Tdap 3 years agoUTD on COVID 19 vaccine RTC in 6 months as per her wisheswith labsER if any symptomssh e did verbalize her understand ing of the above Moderate r ecurrent major depression 30995601 F33.1 On alprazolam as needed bid, renewed 03/01/2023 , will increase to 1mg bid as she feels very overwhelme d since her younger brother a year agoOn sertraline 50mg daily Does wellNot suicidal or homicidalD eclines any referral to psychiatry Thrombocytosis 1883697 D 75.[address] Trimble No further apts at this time, get another apt, but she states that she does not see him anymore as Dr Trimble told her that he would see her if the PLT count was 'a million' Essential hypertension 29296378 I10 On amlodipine 5mg dailyOn lisinopril -HCTZ 10-12.5mg daily Does wellGet labsNo CVS or VIDEO MANAGER complaints Hyperlipidemia 64863431 E78.5 On ASAOn rosuvastat in 20mg daily Does wellGet labs Environmental allergy 42 7477705 T78.49XD On zyrtecOn flonase Does well Hyperglycemia 69521708 R 73.9 Get labsStable A1C Vitamin D deficiency 347 80965 E55.9 Screening mammography 24 434988 Z12.31 [id number] Wes danielle MD [facility] Internal Med [facility] [address] [facility], [address] [place] [address] 04/03/2024 16:47:24 04/03/2024 17:41:25 Screening - NAD [id number] Z13.9 07/27/2019 : Dr Aroldo leyva C-scope Mammogram: 09/16/18: Neg,Mammog hilda: 11/10/2019 : NegMammogr am: 11/22/2020 : NegMammogr am: 12/05/2021 : NegMammogr am: 01/29/2023 : NegMammogr am: 03/16/2024 : Neg PAP: Sees Dr. Barber/Tuan [place]: Did get this at her OB UTD for flu shotUTD Tdap 3 years agoUTD on COVID 19 vaccine, do boostersGe t PCV #20Get shingrix vaccine RTC in 6 months as per her wisheswith labsER if any symptomssh e did verbalize her understand ing of the above Moderate r ecurrent major depression 35765762 F33.1 On alprazolam as needed bid, on 1mg bid as she feels very overwhelme d since her younger brother a year agoOn sertraline 50mg daily Does wellNot suicidal or homicidalD eclines any referral to psychiatry Thrombocytosis 2633342 D 75.[address] Trimble No further apts at this time, get another apt, but she states that she does not see him anymore as Dr Trimble told her that he would see her if the PLT count was 'a million' Essential hypertension 10242034 I10 On amlodipine 5mg dailyOn lisinopril -HCTZ 10-12.5mg daily Does wellGet labsNo CVS or VIDEO MANAGER complaints Hyperlipidemia 57906292 E78.5 On ASAOn rosuvastat in 20mg daily Does wellGet labs Environmental allergy 42 9271644 T78.49XD On zyrtecOn flonase Does well Hyperglycemia 68436992 R 73.9 Get labsStable A1C Vitamin D deficiency 347 10435 E55.9 COVID-19 168009477 U07.1 +ve 03/07/2024 , now does well Screening for osteoporosis 138577444 Z13.670 [id number] Wes danielle MD [facility] Internal Med [facility] [address] [facility], [address] [place] [address] 10/02/2024 15:03:28 10/02/2024 16:02:19 Screening - NAD [id number] Z13.9 07/27/2019 : Dr Aroldo leyva C-scope Mammogram: 09/16/18: Neg,Mammog hilda: 11/10/2019 : NegMammogr am: 11/22/2020 : NegMammogr am: 12/05/2021 : NegMammogr am: 01/29/2023 : NegMammogr am: 03/16/2024 : Neg PAP: Sees Dr. Barber/Tuan [place]: Did get this at her OB UTD for flu shotUTD Tdap 3 years agoUTD on COVID 19 vaccine, do boostersGe t PCV #20Get shingrix vaccine RTC in 6 months as per her wisheswith labsER if any symptomssh e did verbalize her understand ing of the above Moderate r ecurrent major depression 89005532 F33.1 On alprazolam as needed bid, on 1mg bid as she feels very overwhelme d since her younger brother a year ago, last filled 04/05/2024 renewed 10/02/2024 On sertraline 50mg daily Does wellNot suicidal or homicidalD eclines any referral to psychiatry Thrombocytosis 4737285 D [address] Trimble No further apts at this time, get another apt, but she states that she does not see him anymore as Dr Trimble told her that he would see her if the PLT count was 'a million' Essential hypertension 36018183 I10 On amlodipine 5mg dailyOn lisinopril -HCTZ 10-12.5mg daily Does wellGet labsNo CVS or VIDEO MANAGER complaints Hyperlipidemia 43818791 E78.5 On ASAOn rosuvastat in 20mg daily Does wellGet labs Environmental allergy 42 6581350 T78.49XD On zyrtecOn flonase Does well Hyperglycemia 23146689 R 73.9 Not on any medsGet labsStable A1C Vitamin D deficiency 347 62485 E55.9 COVID-19 294661157 U07.1 +ve 03/07/2024 , now does well Screening mammography 24 476958 Z12.31 Postmenopausal state 764 43972 Z78.0 Obesity 396684385 E66.9 Declined any GLP-1Wants to take phentermin e as she has taken this in the past, [facility] [id number] Wes danielle MD [facility] Internal Med [place] [address] [place] [address] 11/01/2024 15:03:07 11/01/2024 15:32:51 Screening - NAD [id number] Z13.9 07/27/2019 : Dr Aroldo leyva C-scope Mammogram: 09/16/18: Neg,Mammog hlida: 11/10/2019 : NegMammogr am: 11/22/2020 : NegMammogr am: 12/05/2021 : NegMammogr am: 01/29/2023 : NegMammogr am: 03/16/2024 : Neg PAP: Sees Dr. Barber/Tuan [place] DEXA: Did get this at her OB UTD for flu shotUTD Tdap 3 years agoUTD on COVID 19 vaccine, do boostersGe t PCV #20Get shingrix vaccine RTC in 6 months as per her wisheswith labsER if any symptomssh e did verbalize her understand ing of the above Obesity 672703204 E66.9 Declined any GLP-1Wants to take phentermin e as she has taken this in the past, all side effects [facility] O V0 5: Did well on phentermin e, will renew #2 prescripti onRTC in one month [id number] Wes danielle MD [facility] Internal Med [place] [address] [place] [address] 12/06/2024 15:04:34 12/06/2024 15:29:34 Obesity 222320307 E66.9 Declined any GLP-1Wants to take phentermin e as she has taken this in the past, all side effects [facility] OV 11/01/2024 : Did well on phentermin e, will renew #2 prescripti onRTC in one month OV 12/06/2024 :Renewed phentermin e #3RTC in one month [id number] Wes danielle MD [facility] Internal [facility] [address] 01/03/2025 15:05:15 01/03/2025 15:22:24 Obesity 575167841 E66.9 [id number] Declined any GLP-1Wants to take phentermin e as she has taken this in the past, all side effects [facility] OV 11/01/2024 : Did well on phentermin e, will renew #2 prescripti onRTC in one month OV 12/06/2024 :Renewed phentermin e #3RTC in one month OV 01/03/2025 :Renewed the phentermin e #4 and this will be the last renewalDoe s well [id number] Wes danielle MD [facility] Internal [facility] [address] [facility], [address] 1 04/04/2025 15:05:29 04/04/2025 16:03:27 Obesity 460188088 E66.9 6404057700 Declined any GLP-1Wants to take phentermin e as she has taken this in the past, all side effects [facility] OV 11/01/2024 : Did well on phentermin e, will renew #2 prescripti onRTC in one month OV 12/06/2024 :Renewed phentermin e #3RTC in one month OV 01/03/2025 :Renewed the phentermin e #4 and this will be the last renewalDoe s well Screening - NAD [id number] 3 Z13.9 07/27/2019 : Dr Aroldo leyva C-scope Mammogram: 09/16/18: Neg,Mammog hilda: 11/10/2019 : NegMammogr am: 11/22/2020 : NegMammogr am: 12/05/2021 : NegMammogr am: 01/29/2023 : NegMammogr am: 03/16/2024 : Neg PAP: Sees Dr. Barber/Tuan [place]: Did get this at her OB UTD for flu shotUTD Tdap 3 years agoUTD on COVID 19 vaccine, do boostersGe t PCV #20Get shingrix vaccine RTC in 6 months as per her wisheswith labsER if any symptomssh e did verbalize her understand ing of the above Moderate r ecurrent major depression 34562123 F33.1 On alprazolam as needed bid, on 1mg bid as she feels very overwhelme d since her younger brother a year ago, last filled 04/05/2024 renewed 10/02/2024 On sertraline 50mg daily Does wellNot suicidal or homicidalD eclines any referral to psychiatry Thrombocytosis 3207948 D 75.[address] Trimble No further apts at this time, get another apt, but she states that she does not see him anymore as Dr Trimble told her that he would see her if the PLT count was 'a million' Essential hypertension 53151193 I10 On amlodipine 5mg dailyOn lisinopril -HCTZ 10-12.5mg daily Does wellGet labsNo CVS or VIDEO MANAGER complaints Hyperlipidemia 84709911 E78.5 On ASAOn rosuvastat in 20mg daily Does wellGet labs Environmental allergy 42 5020232 T78.49XD On zyrtecOn flonase Does well Hyperglycemia 02130829 R 73.9 Not on any medsGet labsStable A1C Vitamin D deficiency 347 42745 E55.9 COVID-19 606682410 U07.1 +ve 03/07/2024 , now does well Health Concerns Section Related Observation LastModified by Organization Detai ls LastModified Time None Recorded Concern Status LastModified by Organization Details LastModified Time None Recorded Advance Directives Directive N: Payers Insurance Date Sequence Insurance Name Policy Number Policy Lynn Covered Member ID Lynn Member ID Guarantor Name 04/01/2025 1 [employer] [id number] Mary Basurto [id number] Mary Basurto Notes Date Note Type Note Provider Name and Address Organization Details Recorded Time 10/02/2024 text/html 12/16/16Here to establish [facility] PMD Dr. Pedroza Hx:HTNAnxiety/Depres sionReviewed her past social family and surgial historyHere to obtain labs and also get her medications refilled.She is doing well otherwise.03/17/17C V:Here with c/o sinusitis, has cough and nasal stuffinus, ears are hurting and throat hurts, ongoing since a weekNo fevers or chillsNon productive no blood in sputumNo blood in ears or noseNo N/V or diarrheaNo rashHas sinus stuffiness and headachesOV 06/16/17:Here for her routine follow up, she states that she is doing wellShe states that she did the labs 3 months in [place] at [facility] OV 12/15/17:Here for her routine aptShe states that she is doing wellShe does want her xanax refilledOV 01/31/18:Here for ACV:C/o URI sxC/o sinus congestion and nasal congestion+ve cough, clear sputum, no bloodNo fevers or chills, no chest pain or SOBNo rashNo N/v or diarrheaOV 06/07/18:Here for ACV:C/o URI sxC/o sinus congestion and nasal congestion+ve cough, no bloodNo fevers or chills, no chest pain or SOBNo rashNo N/v or diarrheaOV 06/21/18:Here for her routine aptShe states that she is doing well at this timeShe has not done any new labs OV 12/20/18:Here for her routine aptShe feels Krystina did do the labs in 09/26She would like her xanax renewed today, tolerates this well and understands the risks for fci bezodiazepine useOV 06/13/19:Here for ACVMar had a cough, sore throat, runny nose, sinus congestion and pain for 2 weeks+ve cough, no bloodNo fevers or chills, no chest pain or SOBNo rashNo N/v or diarrheaOV 12/17/2019:Here for her routine aptShe is doing wellSmariama does have a rash that is very itchy on the L shoulderShe states that this happened when she went to a restaurant about 3-4 days agoShe has not yet done her labsOV 06/16/2020:Here for her routine aptShe is doing very wellShe did do the labsHas noted some nasal congestion, no fevers or chills, no cough, no chest pain or SOB, no wheezingNo loss of smell or tasteNo exposure to the COVID 19OV 12/22/2020:Here for her routine aptShe feels wellShe did do the labsShe would like a refill on the alprazolam todayShe also would like to get on phentermine for her obesityOV 01/19/2021:Here for her one month f/uFor phentermineIs doing wellOV 02/16/2021:Here for her monthly apt for phentermineShe is doing well otherwiseOV 03/23/2021:Here for her monthly phentermineShe is doing well otherwiseOV 04/20/2021:Here for her routine aptShe is doing wellShe did do the labs 04/17/2021OV 09/14/2021:Here for her routine aptShe is doing well and she did do the labs on 08/24/2020 OV 02/22/2022:Here for her f/u apt, and MWVSmariama did do the labs on 01/13/2022 OV 08/23/2022:Here for her f/u apt, she is doing well today, she did the labs on 07/26/2022 OV 03/01/2023: Here for her f/u apt, she is doing well OV 09/01/2023: Here for her routine apt, she is doing well today, she did do the labs OV 04/03/2024: Here for her f/u apt, had to miss her last f/u d/t having COVID 19, now is doing well OV 10/02/2024: Here for her f/u apt, she states that she is doing very well, recently lost her sister Loli, wants to get her xanax, also wants to get on phentermine again, she did do the labs Wes Landeros MD [address] [place], [place] [address], [address], [place], [address], [facility] 10/02/2024 16:03:06 11/01/2024 text/html 12/16/16Here to establish [facility] PMD Dr. Pedroza Hx:HTNAnxiety/Depres sionReviewed her past social family and surgial historyHere to obtain labs and also get her medications refilled.She is doing well otherwise.03/17/17C V:Here with c/o sinusitis, has cough and nasal stuffinus, ears are hurting and throat hurts, ongoing since a weekNo fevers or chillsNon productive no blood in sputumNo blood in ears or noseNo N/V or diarrheaNo rashHas sinus stuffiness and headachesOV 06/16/17:Here for her routine follow up, she states that she is doing wellShe states that she did the labs 3 months in [place] at [facility] OV 12/15/17:Here for her routine aptShe states that she is doing wellShe does want her xanax refilledOV 01/31/18:Here for ACV:C/o URI sxC/o sinus congestion and nasal congestion+ve cough, clear sputum, no bloodNo fevers or chills, no chest pain or SOBNo rashNo N/v or diarrheaOV 06/07/18:Here for ACV:C/o URI sxC/o sinus congestion and nasal congestion+ve cough, no bloodNo fevers or chills, no chest pain or SOBNo rashNo N/v or diarrheaOV 06/21/18:Here for her routine aptShe states that she is doing well at this timeShe has not done any new labs OV 12/20/18:Here for her routine aptShe feels Krystina did do the labs in 09/26She would like her xanax renewed today, tolerates this well and understands the risks for fci bezodiazepine useOV 06/13/19:Here for ACVMar had a cough, sore throat, runny nose, sinus congestion and pain for 2 weeks+ve cough, no bloodNo fevers or chills, no chest pain or SOBNo rashNo N/v or diarrheaOV 12/17/2019:Here for her routine aptShe is doing wellSmariama does have a rash that is very itchy on the L shoulderShe states that this happened when she went to a restaurant about 3-4 days agoShe has not yet done her labsOV 06/16/2020:Here for her routine aptShe is doing very wellShe did do the labsHas noted some nasal congestion, no fevers or chills, no cough, no chest pain or SOB, no wheezingNo loss of smell or tasteNo exposure to the COVID 19OV 12/22/2020:Here for her routine aptShe feels wellShe did do the labsShe would like a refill on the alprazolam todayShe also would like to get on phentermine for her obesityOV 01/19/2021:Here for her one month f/uFor phentermineIs doing wellOV 02/16/2021:Here for her monthly apt for phentermineShe is doing well otherwiseOV 03/23/2021:Here for her monthly phentermineShe is doing well otherwiseOV 04/20/2021:Here for her routine aptShe is doing wellShe did do the labs 04/17/2021OV 09/14/2021:Here for her routine aptShe is doing well and she did do the labs on 08/24/2020 OV 02/22/2022:Here for her f/u apt, and Abiola did do the labs on 01/13/2022 OV 08/23/2022:Here for her f/u apt, she is doing well today, she did the labs on 07/26/2022 OV 03/01/2023: Here for her f/u apt, she is doing well OV 09/01/2023: Here for her routine apt, she is doing well today, she did do the labs OV 04/03/2024: Here for her f/u apt, had to miss her last f/u d/t having COVID 19, now is doing well OV 10/02/2024: Here for her f/u apt, she states that she is doing very well, recently lost her sister Loli, wants to get her xanax, also wants to get on phentermine again, she did do the labs OV 11/01/2024: Here for her phentermine, does well now, wants a refill MD [address], [address], [place], [address], [place] [facility] 11/01/2024 15:45:51 12/06/2024 text/html 12/16/16Here to establish carePast PMD Dr. Pedroza Hx:HTNAnxiety/Depres sionReviewed her past social family and surgial historyHere to obtain labs and also get her medications refilled.She is doing well otherwise.03/17/17C V:Here with c/o sinusitis, has cough and nasal stuffinus, ears are hurting and throat hurts, ongoing since a weekNo fevers or chillsNon productive no blood in sputumNo blood in ears or noseNo N/V or diarrheaNo rashHas sinus stuffiness and headachesOV 06/16/17:Here for her routine follow up, she states that she is doing wellShe states that she did the labs 3 months in [place] at [facility] OV 12/15/17:Here for her routine aptShe states that she is doing wellShe does want her xanax refilledOV 01/31/18:Here for ACV:C/o URI sxC/o sinus congestion and nasal congestion+ve cough, clear sputum, no bloodNo fevers or chills, no chest pain or SOBNo rashNo N/v or diarrheaOV 06/07/18:Here for ACV:C/o URI sxC/o sinus congestion and nasal congestion+ve cough, no bloodNo fevers or chills, no chest pain or SOBNo rashNo N/v or diarrheaOV 06/21/18:Here for her routine aptShe states that she is doing well at this timeShe has not done any new labs OV 12/20/18:Here for her routine aptShe feels Krystina did do the labs in 09/26She would like her xanax renewed today, tolerates this well and understands the risks for termite treater bezodiazepine useOV 06/13/19:Here for ACVHas had a cough, sore throat, runny nose, sinus congestion and pain for 2 weeks+ve cough, no bloodNo fevers or chills, no chest pain or SOBNo rashNo N/v or diarrheaOV 12/17/2019:Here for her routine aptShe is doing wellShe does have a rash that is very itchy on the L shoulderShe states that this happened when she went to a restaurant about 3-4 days agoShe has not yet done her labsOV 06/16/2020:Here for her routine aptShe is doing very wellShe did do the labsHas noted some nasal congestion, no fevers or chills, no cough, no chest pain or SOB, no wheezingNo loss of smell or tasteNo exposure to the COVID 19OV 12/22/2020:Here for her routine aptShe feels wellSmariama did do the labsShe would like a refill on the alprazolam todayShe also would like to get on phentermine for her obesityOV 01/19/2021:Here for her one month f/uFor phentermineIs doing wellOV 02/16/2021:Here for her monthly apt for phentermineShe is doing well otherwiseOV 03/23/2021:Here for her monthly phentermineShe is doing well otherwiseOV 04/20/2021:Here for her routine aptShe is doing wellShe did do the labs 04/17/2021OV 09/14/2021:Here for her routine aptShe is doing well and she did do the labs on 08/24/2020 OV 02/22/2022:Here for her f/u apt, and Abiola did do the labs on 01/13/2022 OV 08/23/2022:Here for her f/u apt, she is doing well today, she did the labs on 07/26/2022 OV 03/01/2023: Here for her f/u apt, she is doing well OV 09/01/2023: Here for her routine apt, she is doing well today, she did do the labs OV 04/03/2024: Here for her f/u apt, had to miss her last f/u d/t having COVID 19, now is doing well OV 10/02/2024: Here for her f/u apt, she states that she is doing very well, recently lost her sister Loli, wants to get her xanax, also wants to get on phentermine again, she did do the labs OV 11/01/2024: Here for her phentermine, does well now, wants a refill OV 12/06/2024: Here for her phentermine refill, she feels well and is noting some weight loss with this Wes Landeros MD [address], [address], [place], [address], [place] [facility] 12/06/2024 15:34:25 01/03/2025 text/html 12/16/16Here to establish carePast PMD Dr. Pedroza Hx:HTNAnxiety/Depres sionReviewed her past social family and surgial historyHere to obtain labs and also get her medications refilled.She is doing well otherwise.03/17/17C V:Here with c/o sinusitis, has cough and nasal stuffinus, ears are hurting and throat hurts, ongoing since a weekNo fevers or chillsNon productive no blood in sputumNo blood in ears or noseNo N/V or diarrheaNo rashHas sinus stuffiness and headachesOV 06/16/17:Here for her routine follow up, she states that she is doing wellShe states that she did the labs 3 months in [place] at [facility] OV 12/15/17:Here for her routine aptShe states that she is doing wellShe does want her xanax refilledOV 01/31/18:Here for ACV:C/o URI sxC/o sinus congestion and nasal congestion+ve cough, clear sputum, no bloodNo fevers or chills, no chest pain or SOBNo rashNo N/v or diarrheaOV 06/07/18:Here for ACV:C/o URI sxC/o sinus congestion and nasal congestion+ve cough, no bloodNo fevers or chills, no chest pain or SOBNo rashNo N/v or diarrheaOV 06/21/18:Here for her routine aptShe states that she is doing well at this timeShe has not done any new labs OV 12/20/18:Here for her routine aptShe feels Krystina did do the labs in 09/26She would like her xanax renewed today, tolerates this well and understands the risks for termite treater bezodiazepine useOV 06/13/19:Here for ACVHas had a cough, sore throat, runny nose, sinus congestion and pain for 2 weeks+ve cough, no bloodNo fevers or chills, no chest pain or SOBNo rashNo N/v or diarrheaOV 12/17/2019:Here for her routine aptShe is doing wellShe does have a rash that is very itchy on the L shoulderShe states that this happened when she went to a restaurant about 3-4 days agoShe has not yet done her labsOV 06/16/2020:Here for her routine aptShe is doing very wellShe did do the labsHas noted some nasal congestion, no fevers or chills, no cough, no chest pain or SOB, no wheezingNo loss of smell or tasteNo exposure to the COVID 19OV 12/22/2020:Here for her routine aptShe feels Krystina did do the labsShe would like a refill on the alprazolam todayShe also would like to get on phentermine for her obesityOV 01/19/2021:Here for her one month f/uFor phentermineIs doing wellOV 02/16/2021:Here for her monthly apt for phentermineShe is doing well otherwiseOV 03/23/2021:Here for her monthly phentermineShe is doing well otherwiseOV 04/20/2021:Here for her routine aptShe is doing wellShe did do the labs 04/17/2021OV 09/14/2021:Here for her routine aptShe is doing well and she did do the labs on 08/24/2020 OV 02/22/2022:Here for her f/u apt, and MWVShe did do the labs on 01/13/2022 OV 08/23/2022:Here for her f/u apt, she is doing well today, she did the labs on 07/26/2022 OV 03/01/2023: Here for her f/u apt, she is doing well OV 09/01/2023: Here for her routine apt, she is doing well today, she did do the labs OV 04/03/2024: Here for her f/u apt, had to miss her last f/u d/t having COVID 19, now is doing well OV 10/02/2024: Here for her f/u apt, she states that she is doing very well, recently lost her sister Loli, wants to get her xanax, also wants to get on phentermine again, she did do the labs OV 11/01/2024: Here for her phentermine, does well now, wants a refill OV 12/06/2024: Here for her phentermine refill, she feels well and is noting some weight loss with this OV 01/03/2025: Here for her phentermine refill, she is doing well, and she has done well Wes Landeros MD [address] [facility] [facility], [facility] [address], [place], [address], [facility] [employer] 01/03/2025 18:52:55 04/04/2025 text/html 12/16/16Here to establish careKyst PMD Dr. Pedroza Hx:HTNAnxiety/Depres sionReviewed her past social family and surgial historyHere to obtain labs and also get her medications refilled.She is doing well otherwise.03/17/17C V:Here with c/o sinusitis, has cough and nasal stuffinus, ears are hurting and throat hurts, ongoing since a weekNo fevers or chillsNon productive no blood in sputumNo blood in ears or noseNo N/V or diarrheaNo rashHas sinus stuffiness and headachesOV 06/16/17:Here for her routine follow up, she states that she is doing wellShe states that she did the labs 3 months in [place] at [facility] OV 12/15/17:Here for her routine aptShe states that she is doing wellShe does want her xanax refilledOV 01/31/18:Here for ACV:C/o URI sxC/o sinus congestion and nasal congestion+ve cough, clear sputum, no bloodNo fevers or chills, no chest pain or SOBNo rashNo N/v or diarrheaOV 06/07/18:Here for ACV:C/o URI sxC/o sinus congestion and nasal congestion+ve cough, no bloodNo fevers or chills, no chest pain or SOBNo rashNo N/v or diarrheaOV 06/21/18:Here for her routine aptShe states that she is doing well at this timeShe has not done any new labs OV 12/20/18:Here for her routine aptShe feels Krystina did do the labs in 09/26She would like her xanax renewed today, tolerates this well and understands the risks for fci bezodiazepine useOV 06/13/19:Here for ACVHas had a cough, sore throat, runny nose, sinus congestion and pain for 2 weeks+ve cough, no bloodNo fevers or chills, no chest pain or SOBNo rashNo N/v or diarrheaOV 12/17/2019:Here for her routine aptShe is doing wellSmariama does have a rash that is very itchy on the L shoulderShe states that this happened when she went to a restaurant about 3-4 days agoShe has not yet done her labsOV 06/16/2020:Here for her routine aptShe is doing very wellShe did do the labsHas noted some nasal congestion, no fevers or chills, no cough, no chest pain or SOB, no wheezingNo loss of smell or tasteNo exposure to the COVID 19OV 12/22/2020:Here for her routine aptShe feels Krystina did do the labsShe would like a refill on the alprazolam todayShe also would like to get on phentermine for her obesityOV 01/19/2021:Here for her one month f/uFor phentermineIs doing wellOV 02/16/2021:Here for her monthly apt for phentermineShe is doing well otherwiseOV 03/23/2021:Here for her monthly phentermineShe is doing well otherwiseOV 04/20/2021:Here for her routine aptShe is doing wellShe did do the labs 04/17/2021OV 09/14/2021:Here for her routine aptShe is doing well and she did do the labs on 08/24/2020 OV 02/22/2022:Here for her f/u apt, and MWVShe did do the labs on 01/13/2022 OV 08/23/2022:Here for her f/u apt, she is doing well today, she did the labs on 07/26/2022 OV 03/01/2023: Here for her f/u apt, she is doing well OV 09/01/2023: Here for her routine apt, she is doing well today, she did do the labs OV 04/03/2024: Here for her f/u apt, had to miss her last f/u d/t having COVID 19, now is doing well OV 10/02/2024: Here for her f/u apt, she states that she is doing very well, recently lost her sister Loli, wants to get her xanax, also wants to get on phentermine again, she did do the labs OV 11/01/2024: Here for her phentermine, does well now, wants a refill OV 12/06/2024: Here for her phentermine refill, she feels well and is noting some weight loss with this OV 01/03/2025: Here for her phentermine refill, she is doing well, and she has done well OV 04/04/2025: Here for her f/u apt, she is doing wellShe would like to get her refill for her xanax Wes Landeros MD [address], [address] [address], [place], [address], [facility] 04/04/2025 18:59:44 OBGyn Episode No OBEpisode recorded.
== END 2025-05-13 08:44 | disposition home or self-care (01) ==
LOC: ANHFOHIMG 08:44
PROVIDERS: PCP Internal Medicine; Visit Provider Internal Medicine
DX: Z12.31 Encounter for screening mammogram for malignant neoplasm of breast (principal); M85.89 Other specified disorders of bone density and structure, multiple sites; Z78.0 Asymptomatic menopausal state; Z13.820 Encounter for screening for osteoporosis
CPT/HCPCS: 77063; 77067; 77080